=== PATIENT | male | born 1995 | race African-American/Black ===

== ENCOUNTER 2017-12-01 16:19 | Emergency (ER) | payer SELFPAY | END 2017-12-01 17:01 | disposition home or self-care (01) | LOC: ER 16:19 | DX: B35.4 Tinea corporis (principal); J45.909 Unspecified asthma, uncomplicated | CPT/HCPCS: 99283 ==

== ENCOUNTER 2018-07-04 08:45 | Emergency (ER) | payer SELFPAY ==
[~2018-07-04] VITALS: Ht 177.8 cm; Wt 68.7 kg
[~2018-07-04 08:45] MED LIST: CLOT15CR5 TP
[2018-07-04 09:54] LABS: CALCIUM 8.7 mg/dL (8.5-10.1); CREATININE 1.1 mg/dL (0.7-1.3); GFR 102.2; POTASSIUM 4.2 mmol/L (3.5-5.1)
[2018-07-04 09:55] LABS: BASO % 0 % (0-3); EOS # 0.3 x10^3/uL (0.0-0.7); EOS % 4 % (0-3); HEMATOCRIT 41.8 % (39.0-53.0); HEMOGLOBIN 14.3 g/dL (13.0-17.5); LYMPH # 3.1 x10^3/uL (1.0-4.8); LYMPH % 43 % (24-48); MEAN CORPUSCULAR HEMOGLOBIN 30 pg (25-35); MEAN CORPUSCULAR HGB CONC 34 g/dL (31-37); MEAN CORPUSCULAR VOLUME 86 fL (79-100); MONO # 0.8 x10^3/uL (0.0-1.1); MONO % 11 % (0-9); NEUT % 41 % (31-73); PLATELET COUNT 209 x10^3/uL (140-400); RED BLOOD COUNT 4.84 x10^6/uL (4.30-5.70); RED CELL DISTRIBUTION WIDTH 12.4 % (11.5-14.5); WHITE BLOOD COUNT 7.2 x10^3/uL (4.0-11.0)
--- NOTE | 2018-07-04 09:55 | PHYS DOC ---
Past Medical History Past Medical History: Asthma, Constipation Past Surgical History: No Surgical History Alcohol Use: Heavy Additional Information: reports drinking heavily every weekend Drug Use: Marijuana Adult General Chief Complaint Chief Complaint: ABDOMINAL PAIN HPI HPI Patient is a 22 year old male who presents with the states he has had a umbilical hernia since he was born but does not currently have a primary care to follow-up with. Patient states that now he has a hernia that is to the left of his umbilical hernia and able that when he is running or squats down it pops out and causes him some pain. Patient does state that he has some generalized pain in his abdomen that is worse when he drinks alcohol of which she states he only drinks on weekends. Patient denies any urinary symptoms, constipation, nausea, vomiting, fever, urinary symptoms. States that he takes no medications daily and is only allergic to seafood and peanuts. Review of Systems Review of Systems Constitutional: Denies fever or chills [] Eyes: Denies change in visual acuity, redness, or eye pain [] HENT: Denies nasal congestion or sore throat [] Respiratory: Denies cough or shortness of breath [] Cardiovascular: No additional information not addressed in HPI [] GI: Generalized abdominal pain , umbilical hernia since . Denies nausea, vomiting, bloody stools or diarrhea [] : Denies dysuria or hematuria [] Musculoskeletal: Denies back pain or joint pain [] Integument: Denies rash or skin lesions [] Neurologic: Denies headache, focal weakness or sensory changes [] Endocrine: Denies polyuria or polydipsia [] All other systems were reviewed and found to be within normal limits, except as documented in this note. Current Medications Current Medications Current Medications Medications (Trade) Dose Ordered Sig/Karley Start Time Stop Time Status Last Admin Dose Admin Info (CONTRAST GIVEN -- Rx MONITORING) 1 each PRN DAILY PRN 07/04/18 10:45 07/06/18 10:44 Iohexol (Omnipaque 300 Mg/ml) 75 ml 1X ONCE 07/04/18 10:45 07/04/18 10:46 DC 07/04/18 10:39 75 ML Allergies Allergies Allergies Coded Allergies Type Severity Reaction Last Updated Verified peanut Allergy Intermediate hives 07/04/18 Yes Uncoded Allergies Type Severity Reaction Last Updated Verified seafood Allergy Severe swelling 07/04/18 Physical Exam Physical Exam Constitutional: Well developed, well nourished, no acute distress, non-toxic appearance. [] HENT: Normocephalic, atraumatic, bilateral external ears normal, oropharynx moist, no oral exudates, nose normal. [] Eyes: PERRLA, EOMI, conjunctiva normal, no discharge. [] Neck: Normal range of motion, no tenderness, supple, no stridor. [] Cardiovascular:Heart rate regular rhythm, no murmur [] Lungs & Thorax: Bilateral breath sounds clear to auscultation [] Abdomen: Bowel sounds normal, soft, no tenderness, umbilical hernia, no other masses, no pulsatile masses. [] Skin: Warm, dry, no erythema, no rash. [] Back: No tenderness, no CVA tenderness. [] Extremities: No tenderness, no cyanosis, no clubbing, ROM intact, no edema. [] Neurologic: Alert and oriented X 3, normal motor function, normal sensory function, no focal deficits noted. [] Psychologic: Affect normal, judgement normal, mood normal. [] Current Patient Data Vital Signs Vital Signs Date Time Temp Pulse Resp B/P (MAP) Pulse Ox O2 Delivery O2 Flow Rate FiO2 07/04/18 10:58 64 16 141/95 (110) 98 Room Air 07/04/18 08:48 98.1 98.1 Lab Values Laboratory Tests Test 07/04/18 09:38 07/04/18 10:26 White Blood Count 7.2 x10^3/uL (4.0-11.0) Red Blood Count 4.84 x10^6/uL (4.30-5.70) Hemoglobin 14.3 g/dL (13.0-17.5) Hematocrit 41.8 % (39.0-53.0) Mean Corpuscular Volume 86 fL (79-100) Mean Corpuscular Hemoglobin 30 pg (25-35) Mean Corpuscular Hemoglobin Concent 34 g/dL (31-37) Red Cell Distribution Width 12.4 % (11.5-14.5) Platelet Count 209 x10^3/uL (140-400) Neutrophils (%) (Auto) 41 % (31-73) Lymphocytes (%) (Auto) 43 % (24-48) Monocytes (%) (Auto) 11 % (0-9) H Eosinophils (%) (Auto) 4 % (0-3) H Basophils (%) (Auto) 0 % (0-3) Neutrophils # (Auto) 3.0 x10^3uL (1.8-7.7) Lymphocytes # (Auto) 3.1 x10^3/uL (1.0-4.8) Monocytes # (Auto) 0.8 x10^3/uL (0.0-1.1) Eosinophils # (Auto) 0.3 x10^3/uL (0.0-0.7) Basophils # (Auto) 0.0 x10^3/uL (0.0-0.2) Sodium Level 135 mmol/L (136-145) L Potassium Level 4.2 mmol/L (3.5-5.1) Chloride Level 103 mmol/L (98-107) Carbon Dioxide Level 32 mmol/L (21-32) Anion Gap 0 (6-14) L Blood Urea Nitrogen 13 mg/dL (8-26) Creatinine 1.1 mg/dL (0.7-1.3) Estimated GFR (Cockcroft-Gault) 102.2 BUN/Creatinine Ratio 12 (6-20) Glucose Level 94 mg/dL (70-99) Calcium Level 8.7 mg/dL (8.5-10.1) Total Bilirubin 1.0 mg/dL (0.2-1.0) Aspartate Amino Transferase (AST) 23 U/L (15-37) Alanine Aminotransferase (ALT) 21 U/L (16-63) Alkaline Phosphatase 71 U/L (46-116) Total Protein 7.5 g/dL (6.4-8.2) Albumin 3.9 g/dL (3.4-5.0) Albumin/Globulin Ratio 1.1 (1.0-1.7) Lipase 85 U/L (73-393) Ethyl Alcohol Level < 10 mg/dL (0-10) Urine Collection Type Unknown Urine Color Yellow Urine Clarity Clear Urine pH 6.5 Urine Specific [place] 1.020 Urine Protein Negative mg/dL (NEG-TRACE) Urine Glucose (UA) Negative mg/dL (NEG) Urine Ketones (Stick) Negative mg/dL (NEG) Urine Blood Negative (NEG) Urine Nitrite Negative (NEG) Urine Bilirubin Negative (NEG) Urine Urobilinogen Dipstick 1.0 mg/dL (0.2 mg/dL) Urine Leukocyte Esterase Trace (NEG) Urine RBC Occ /HPF (0-2) Urine WBC 1-4 /HPF (0-4) Urine Squamous Epithelial Cells Few /LPF Urine Bacteria Few /HPF (0-FEW) Urine Mucus Slight /LPF Urine Opiates Screen Neg (NEG) Urine Methadone Screen Neg (NEG) Urine Barbiturates Neg (NEG) Urine Phencyclidine Screen Neg (NEG) Urine Amphetamine/Methamphetamine Neg (NEG) Urine Benzodiazepines Screen Pos (NEG) Urine Cocaine Screen Neg (NEG) Urine Cannabinoids Screen Pos (NEG) Urine Ethyl Alcohol Neg (NEG) Laboratory Tests 07/04/18 09:38 Laboratory Tests 07/04/18 09:38 EKG EKG [] Radiology/Procedures Radiology/Procedures CT Abdomen[] Impressions: [facility] [address] [place] [address] IMAGING REPORT Signed PATIENT: ANTHONY Angulo ACCOUNT: [id number] : 1995 LOCATION: ER AGE: 22 SEX: M EXAM STATUS: REG ER ORD. PHYSICIAN: TNI CRUMP APRN REASON: abdominal pain PROCEDURE: CT ABD PELV W/ IV CONTRST ONLY Examination: CT of the abdomen pelvis with IV contrast HISTORY: History of abdominal pain in the umbilicus COMPARISON: None available Technique: Axial CT images of the abdomen pelvis were performed with IV contrast. Coronal and sagittal reformats are performed Exposure: One or more of the following individualized dose reduction techniques were utilized for this examination: 1. Automated exposure control 2. Adjustment of the mA and/or kV according to patient size 3. Use of iterative reconstruction technique FINDINGS: The visualized bibasilar lungs are clear. No evidence of free air identified in the abdomen. The visualized liver, spleen, adrenals grossly appears unremarkable. The gallbladder is mildly distended. The stomach is mildly distended. The small bowel is nondilated. The appendix is not clearly identified however no obvious inflammatory fat stranding identified in the right lower quadrant of the abdomen. Feces and gas noted in the colon. Contrast identified in the posterior aspect of the urinary bladder. Evaluation of the pelvis is somewhat limited due to streak artifact from contrast in the urinary bladder. No evidence of lytic bony destructive lesion identified. At the level of the umbilicus there is a small knuckle bowel loop extending into the umbilicus, best visualized on series 2 image #50. IMPRESSION: 1. There is a small knuckle of bowel ,likely the transverse colon, extending into the umbilicus without obvious obstruction. 2. The appendix is not clearly identified however no obvious inflammatory fat stranding visualized in the right lower quadrant of the abdomen. Electronically signed by: Todd Cates MD (07/04/2018 11:26 AM) [id number] DICTATED and SIGNED BY: TODD CATES MD DATE: 07/04/18 1117 Course & Med Decision Making Course & Med Decision Making Patient is alert and oriented. Patient states that he has some abdominal pain to the left of his navel area that will pop out when he is running or squats down causing him pain. Patient also states he has generalized abdominal pain of which she cannot pinpoint states comes and goes he knows it it is worse with drinks alcohol which he states he only drinks on weekends. Patient denies constipation with last bowel movement being yesterday and it was normal for him. Patient denies urinary symptoms. Patient denies any nausea or vomiting or fever. Upon examination patient's abdomen is nontender with no masses felt. Patient does have an umbilical hernia right at navel that slightly protrudes of which patient states he has had since . Patient states that he had all these pains since "forever" has been seen multiple times at [facility] and [facility] he states last year for. Patient has never seen a general surgeon or has no primary care. Patient is currently having no pain. Patient's blood work is unremarkable. Patient's urine shows marijuana and Benzo use. Patient CT scan shows There is a small knuckle of bowel ,likely the transverse colon, extending into the umbilicus without obvious obstruction. The appendix is not clearly identified however no obvious inflammatory fat stranding visualized in the right lower quadrant of the abdomen. Patient will be referred to a general surgeon and discharged home. [] Dragon Disclaimer Dragon Disclaimer This electronic medical record was generated, in whole or in part, using a voice recognition dictation system. Departure Departure Impression: Primary Impression: Umbilical hernia Disposition: 01 HOME, SELF-CARE Condition: STABLE Referrals: NO PCP (PCP) MAGED IYER MD Patient Instructions: Umbilical Hernia, Child Additional Instructions: Follow-up with general surgery. Ibuprofen for pain. Problem Qualifiers Primary Impression: Umbilical hernia Obstruction and gangrene presence: without obstruction or gangrene Qualified Codes: K42.9 - Umbilical hernia without obstruction or gangrene TIN CRUMP [employer] Jul 04, 2018 09:55
[2018-07-04 10:00] LABS: ALBUMIN 3.9 g/dL (3.4-5.0); ALBUMIN/GLOBULIN RATIO 1.1 (1.0-1.7); TOTAL PROTEIN 7.5 g/dL (6.4-8.2)
[2018-07-04 10:41] LABS: BARBITURATES NEG (NEG); BENZODIAZEPINES POS (NEG); CANNABINOIDS POS (NEG); COCAINE NEG (NEG); METHADONE NEG (NEG); OPIATES NEG (NEG); PHENCYCLIDINE NEG (NEG)
[2018-07-04 10:42] LABS: AMPHETAMINE/METHAMPHETAMINE NEG (NEG)
[2018-07-04] MEDS ORDERED: IOHEXOL 300 MG/ML 100ML VIAL. IV ONE (10:45)
[2018-07-04] MEDS ORDERED: CONTRAST GIVEN. MC PRN (10:45)
[2018-07-04 10:47] LABS: BILIRUBIN,URINE NEGATIVE (NEG); CLARITY,URINE CLEAR; COLOR,URINE YELLOW; NITRITE,URINE NEGATIVE (NEG); PH,URINE 6.5; PROTEIN,URINE NEGATIVE (NEG-TRACE)
[2018-07-04 10:58] VITALS: BP 141/95
[2018-07-04 11:10] LABS: BACTERIA,URINE FEW /HPF (0-FEW); RBC,URINE OCC /HPF (0-2)
[2018-07-04 11:11] LABS: SQUAMOUS EPITHELIAL CELL,UR FEW /LPF
--- NOTE | 2018-07-04 11:29 | RAD ---
Examination: CT of the abdomen pelvis with IV contrast HISTORY: History of abdominal pain in the umbilicus COMPARISON: None available Technique: Axial CT images of the abdomen pelvis were performed with IV contrast. Coronal and sagittal reformats are performed Exposure: One or more of the following individualized dose reduction techniques were utilized for this examination: 1. Automated exposure control 2. Adjustment of the mA and/or kV according to patient size 3. Use of iterative reconstruction technique FINDINGS: The visualized bibasilar lungs are clear. No evidence of free air identified in the abdomen. The visualized liver, spleen, adrenals grossly appears unremarkable. The gallbladder is mildly distended. The stomach is mildly distended. The small bowel is nondilated. The appendix is not clearly identified however no obvious inflammatory fat stranding identified in the right lower quadrant of the abdomen. Feces and gas noted in the colon. Contrast identified in the posterior aspect of the urinary bladder. Evaluation of the pelvis is somewhat limited due to streak artifact from contrast in the urinary bladder. No evidence of lytic bony destructive lesion identified. At the level of the umbilicus there is a small knuckle bowel loop extending into the umbilicus, best visualized on series 2 image #50. IMPRESSION: 1. There is a small knuckle of bowel ,likely the transverse colon, extending into the umbilicus without obvious obstruction. 2. The appendix is not clearly identified however no obvious inflammatory fat stranding visualized in the right lower quadrant of the abdomen. Electronically signed by: Todd Cates MD (07/04/2018 11:26 AM) [id number]
== END 2018-07-04 12:03 | disposition home or self-care (01) ==
LOC: ER 08:45
DX: K42.9 Umbilical hernia without obstruction or gangrene (principal); J45.909 Unspecified asthma, uncomplicated; F10.10 Alcohol abuse, uncomplicated; Y90.9 Presence of alcohol in blood, level not specified; Z91.010 Allergy to peanuts; Z91.013 Allergy to seafood
CPT/HCPCS: 36415; 74177; 80053; 80307; 81001; 83690; 85025; 87086; 99285; G0480; Q9967; G0479

== ENCOUNTER 2018-07-20 09:29 | Emergency (ER) | payer SELFPAY ==
[~2018-07-20] VITALS: Ht 177.8 cm; Wt 64.0 kg
[2018-07-20 10:13] VITALS: BP 122/70
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
== END 2018-07-20 12:12 | disposition home or self-care (01) ==
LOC: ER 09:29
DX: S02.31XA Fracture of orbital floor, right side, initial encounter for closed fracture (principal); J45.909 Unspecified asthma, uncomplicated; F10.20 Alcohol dependence, uncomplicated; Y90.9 Presence of alcohol in blood, level not specified; Z91.010 Allergy to peanuts; Z91.013 Allergy to seafood; X58.XXXA Exposure to other specified factors, initial encounter; Y93.89 Activity, other specified; Y92.89 Other specified places as the place of occurrence of the external cause; Y99.8 Other external cause status
CPT/HCPCS: 70480; 99284

== ENCOUNTER 2020-07-21 07:33 | Emergency (ER) | payer MEDICAID ==
[~2020-07-21] VITALS: Ht 177.8 cm; Wt 64.5 kg
[2020-07-21] MEDS ORDERED: cefTRIAXone IM 250 MG VIAL IM ONE (08:15)
[2020-07-21] MEDS ORDERED: ONDANSETRON ODT 4 MG TAB.RAPDIS. PO ONE (08:15)
[2020-07-21] MEDS ORDERED: AZITHROMYCIN 250 MG TABLET. PO ONE (08:15)
[2020-07-21] MEDS ORDERED: CLOT15CR5 TP (08:45)
--- NOTE | 2020-07-21 08:49 | PHYS DOC ---
Past Medical History Past Medical History: Asthma, Constipation Additional Past Medical Histor: HERNIA Past Surgical History: No Surgical History Smoking Status: Never Smoker Alcohol Use: Heavy Drug Use: Marijuana General Adult EDM: Chief Complaint: GI PROBLEM HPI: HPI: Patient is a 24 year old male who presents complaining of rectal discomfort, rectal discharge, and some mild bleeding. Patient is involved in a relationship with another male and states he has pain with rectal intercourse. He noticed the "mucus" discharge a few weeks ago after intercourse. He denies discharge any other time. He does not have any blood or mucus in his stools. He denies abdominal pain, nausea, vomiting, diarrhea, constipation. He was treated a year ago for something similar. 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 Review of Systems: Review of Systems: General: Denies fever, chills, sweats, fatigue Eyes: Denies drainage, blurred vision, eye redness HENT: Denies rhinorrhea, sore throat, earache Respiratory: Denies cough, shortness of breath, wheezing Cardiac: Denies edema, palpitations, chest pain GI: Denies abdominal pain, Nausea, vomiting MSK: Denies back pain, neck pain Skin: Denies rash, jaundice Neuro: Denies headache, dizziness Psychiatric: Denies SI/HI Heart Score: Risk Factors: Risk Factors: DM, Current or recent (<one month) smoker, HTN, HLP, family history of CAD, obesity. Risk Scores: Score 0 - 3: 2.5% MACE over next 6 weeks - Discharge Home Score 4 - 6: 20.3% MACE over next 6 weeks - Admit for Clinical Observation Score 7 - 10: 72.7% MACE over next 6 weeks - Early Invasive Strategies Current Medications: Current Medications Medications (Trade) Dose Ordered Sig/Karley Start Time Stop Time Status Last Admin Dose Admin Azithromycin (Zithromax) 1,000 mg 1X ONCE 07/21/20 08:15 07/21/20 08:16 DC 07/21/20 08:33 1,000 MG Ceftriaxone Sodium (Rocephin Im) 250 mg 1X ONCE 07/21/20 08:15 07/21/20 08:16 DC 07/21/20 08:35 250 MG Ondansetron HCl (Zofran Odt) 4 mg 1X ONCE 07/21/20 08:15 07/21/20 08:16 DC 07/21/20 08:33 4 MG Allergies: Allergies: Allergies Coded Allergies Type Severity Reaction Last Updated Verified fish derived Allergy Severe Swelling 07/21/20 Yes peanut Allergy Intermediate hives 07/04/18 Yes Physical Exam: PE: General: Awake, alert, NAD. Well Nourished, well hydrated. Cooperative HEENT: Atraumatic, EOMI, PERRL, airway patent, moist oral mucosa Neck: Supple, trachea midline Respiratory: CTA bilaterally, normal effort, no wheezing/crackles CV: RRR, no murmur, cap refill <2 GI: Soft, nondistended, nontender, no masses MSK: No obvious deformities Skin: Warm, dry, intact Neuro: A&O x3, speech NL, sensory and motor grossly intact, no focal deficits Psych: Normal affect, normal mood, not suicidal or homicidal Current Patient Data: Vital Signs: Vital Signs Date Time Temp Pulse Resp B/P (MAP) Pulse Ox O2 Delivery O2 Flow Rate FiO2 07/21/20 07:46 98.2 86 20 122/71 (88) 99 Room Air 98.2 EKG: EKG: [] Radiology/Procedures: Radiology/Procedures: [] Course & Med Decision Making: Course & Med Decision Making Pertinent Labs and Imaging studies reviewed. (See chart for details) Patient is a 24 year old male who presents to the Emergency Room with rectal discharge, discomfort, and intermittent bleeding after intercourse. Patient's presentation is consistent with rectal STDs. Patient does not have any symptoms suggestive of a rectal abscess and this is been ongoing for several weeks. It is likely that patient was treated for an STD last year and did not understand that his partner need to be treated. I have discussed this with the patient in depth here in the emergency room. Patient declines an exam at this time. We will treat him empirically. Patient's test results and vitals while in the ED were fully reviewed and discussed with the patient. Patient is stable and at this time does not need admission to the hospital. We have discussed strict return precautions and the importance of following up with their Primary Care Physician. Patient stated understanding and was given an opportunity to ask any questions. Patient is in agreement with plan. Sheila Disclaimer: Sheila Disclaimer: This electronic medical record was generated, in whole or in part, using a voice recognition dictation system. Departure Departure Impression: Primary Impression: Rectal discharge Additional Impression: Rectal discomfort Disposition: HOME, SELF-CARE Condition: STABLE Referrals: NO PCP (PCP) Patient Instructions: Sexually Transmitted Disease Scripts Clotrimazole/Betamethasone Dip (CLOTRIMAZOLE-BETAMETHASONE CRM) 15 Gm Cream..g. 1 MARÍA TP BID, #30 GM 1 Refill Prov: YE BOCANEGRA MD 07/21/20 Justicifation of Admission Dx: Justifications for Admission: Justification of Admission Dx: N/A YE BOCANEGRA MD Jul 21, 2020 08:49
[2020-07-21 09:03] LABS: BILIRUBIN,URINE NEGATIVE (NEG); CLARITY,URINE CLEAR; COLOR,URINE YELLOW; NITRITE,URINE NEGATIVE (NEG); PH,URINE 5.5 (<5.0-8.0); PROTEIN,URINE NEGATIVE (NEG-TRACE); UROBILINOGEN,URINE 0.2 mg/dL (0.2 mg/dL)
[2020-07-21 09:13] VITALS: BP 136/86
[2020-07-21 09:21] LABS: BACTERIA,URINE 0 /HPF (0-FEW); RBC,URINE 0 /HPF (0-2); SQUAMOUS EPITHELIAL CELL,UR FEW /LPF; WBC,URINE OCC /HPF (0-4)
== END 2020-07-21 09:35 | disposition home or self-care (01) ==
LOC: ER 07:33
DX: K62.5 Hemorrhage of anus and rectum (principal); J45.909 Unspecified asthma, uncomplicated; F12.90 Cannabis use, unspecified, uncomplicated; F10.10 Alcohol abuse, uncomplicated; Z98.890 Other specified postprocedural states; Z91.013 Allergy to seafood; Z91.010 Allergy to peanuts
CPT/HCPCS: 81001; 87491; 87591; 96372; 99283; J0696

== ENCOUNTER 2020-10-12 06:56 | Emergency (ER) | payer SELFPAY ==
[~2020-10-12] VITALS: Ht 177.8 cm; Wt 64.0 kg
--- NOTE | 2020-10-12 07:45 | PHYS DOC ---
Past Medical History Past Medical History: Asthma, Constipation Additional Past Medical Histor: HERNIA Past Surgical History: No Surgical History Smoking Status: Never Smoker Alcohol Use: Heavy Drug Use: Marijuana General Adult EDM: Chief Complaint: GENERALIZED BODY ACHES HPI: HPI: Patient is a 25 year old male who presented to ER for 1 week history of fever and chills body ache, low back pain. Patient denies any cough, no neck pain, no headache, no abdominal pain, no cough, no trouble breathing, no nausea vomiting. Patient denies any injury. Complaint of low back pain but not in the middle of his back but on the bilateral lower muscle area. Patient is not sure if he been exposed to anybody who had coronavirus. Patient denies any neck pain or neck stiffness. Patient denies any sore throat. Review of Systems: Review of Systems: Constitutional: Positive for fever and chills. [] Eyes: Denies change in visual acuity. [] HENT: Denies nasal congestion or sore throat. [] Respiratory: Denies cough or shortness of breath. [] Cardiovascular: Denies chest pain or edema. [] GI: Denies abdominal pain, nausea, vomiting, bloody stools or diarrhea. [] : Denies dysuria. [] Musculoskeletal: Positive for lower back pain. Integument: Denies rash. [] Neurologic: Denies headache, focal weakness or sensory changes. [] Endocrine: Denies polyuria or polydipsia. [] Lymphatic: Denies swollen glands. [] Psychiatric: Denies depression or anxiety. [] Heart Score: Risk Factors: Risk Factors: DM, Current or recent (<one month) smoker, HTN, HLP, family history of CAD, obesity. Risk Scores: Score 0 - 3: 2.5% MACE over next 6 weeks - Discharge Home Score 4 - 6: 20.3% MACE over next 6 weeks - Admit for Clinical Observation Score 7 - 10: 72.7% MACE over next 6 weeks - Early Invasive Strategies Current Medications: Current Medications Medications (Trade) Dose Ordered Sig/Karley Start Time Stop Time Status Last Admin Dose Admin Ibuprofen (Motrin) 600 mg 1X ONCE 10/12/20 08:00 10/12/20 08:01 Allergies: Allergies: Allergies Coded Allergies Type Severity Reaction Last Updated Verified fish derived Allergy Severe Swelling 07/21/20 Yes peanut Allergy Intermediate hives 07/04/18 Yes Physical Exam: PE: Constitutional: Well developed, well nourished, no acute distress, non-toxic appearance. [] HENT: Normocephalic, atraumatic, bilateral external ears normal, oropharynx etta st, no oral exudates, nose normal. [] Eyes: PERRLA, EOMI, conjunctiva normal, no discharge. [] Neck: Normal range of motion, no tenderness, supple, no stridor. [] Cardiovascular:Heart rate regular rhythm, no murmur [] Lungs & Thorax: Bilateral breath sounds clear to auscultation [] Abdomen: Bowel sounds normal, soft, no tenderness, no masses, no pulsatile masses. [] Skin: Warm, dry, no erythema, no rash. [] Back: There is no midline lumbar vertebral tenderness to palpation, no CVA t enderness. There is tenderness to palpation on lower bilateral paraspinal muscle area. Extremities: No tenderness, no cyanosis, no clubbing, ROM intact, no edema. [] Neurologic: Alert and oriented X 3, normal motor function, normal sensory function, no focal deficits noted. [] Psychologic: Affect normal, judgement normal, mood normal. [] Current Patient Data: Labs: Laboratory Tests Test 10/12/20 07:30 10/12/20 07:40 10/12/20 08:24 Influenza Type A Antigen Negative Influenza Type B Antigen Negative Group A Streptococcus Rapid Negative Urine Collection Type Unknown Urine Color Yellow Urine Clarity Clear Urine pH 6.0 Urine Specific [place] 1.025 Urine Protein Negative mg/dL Urine Glucose (UA) Negative mg/dL Urine Ketones (Stick) Negative mg/dL Urine Blood Negative Urine Nitrite Negative Urine Bilirubin Negative Urine Urobilinogen Dipstick 0.2 mg/dL Urine Leukocyte Esterase Negative Urine RBC 0 /HPF Urine WBC Occ /HPF Urine Squamous Epithelial Cells Occ /LPF Urine Bacteria 0 /HPF Urine Mucus Slight /LPF Current Medications Medications (Trade) Dose Ordered Sig/Karley Route PRN Reason Start Time Stop Time Status Last Admin Dose Admin Ibuprofen (Motrin) 600 mg 1X ONCE PO 10/12/20 08:00 10/12/20 08:01 DC 10/12/20 08:01 EKG: EKG: [] Radiology/Procedures: Radiology/Procedures: [] Course & Med Decision Making: Course & Med Decision Making Pertinent Labs and Imaging studies reviewed. (See chart for details) [] Sheila Disclaimer: Sheila Disclaimer: This electronic medical record was generated, in whole or in part, using a voice recognition dictation system. Departure Departure Impression: Primary Impression: Viral syndrome Disposition: 01 DC HOME SELF CARE/HOMELESS Condition: STABLE Referrals: NO PCP (PCP) follow up with your doctor as needed Patient Instructions: Viral Syndrome Additional Instructions: You have been tested for or diagnosed with COVID-19. It is an infection caused by a new type of coronavirus. COVID-19 will cause cold-like or mild flu symptoms in most. It can cause more severe symptoms like problems breathing in some. There is no treatment for COVID-19. The body will clear the infection over time. Self-care will help to ease discomfort. Steps to Take: Self-Care Rest as needed. Healthy habits may help you feel better. Steps include: Choose healthy foods including fruits and vegetables. Drink water throughout the day. Get plenty of sleep each night. If you smoke, try to quit. It may ease breathing. Avoid alcohol. Keep Others Healthy The virus can spread to others. Droplets are released every time you sneeze or cough. The droplets can get into the mouth, nose, or eyes of people near you and lead to infection. To lower the chances of spreading COVID-19 to others: Stay at home until your doctor has said it is safe to leave. If you tested positive this will mean staying isolated until both of the following are true: At least 7 days have passed since the start of illness. You are free of fever for at least 72 hours without the use of medicine. During this time: - Avoid public areas, events, or transportation. Do not return to work or school until your doctor has said it is safe to do so. - Call ahead if you need to go to a medical center. Let them know you may have COVID-19. It will help them guide you where to go. They may also ask you to wear a facemask when you come to the office. - If you call for emergency medical services, let them know you may have COVID- 19. While at home: - Try to avoid close contact with others. Stay about 6 feet away. - If possible, spend most of your time in a separate room from others. - Use a face mask if you will be in close contact with others such as sharing a room or vehicle. - Have someone wipe down common surfaces in the home. Use household hop farm worker every day on areas like doorknobs, counters, or sinks. - Cough or sneeze into a tissue. Throw the tissue away right after use. If a tissue is not available, cough or sneeze into your elbow. - Wash your hands often. Wash them after sneezing or coughing. Use soap and water and wash for at least 20 seconds. Alcohol based hand freight car cleaner can be used if soap and water is not available. - Do not prepare food for others. Avoid sharing personal items like forks, spoons, or toothbrushes. - Avoid close contact with pets while you are sick. There is no evidence of the virus passing to pets. This is a safety step until more is known about this virus. Isolation can be frustrating. Social interaction can help. Keep in touch with friends and family through phone and tech options. You can still interact with others in your home, just keep a safe distance of about 6 feet. Follow-up: Your doctors office will check in with you to see if there are any changes in your health. You may be asked to keep track of symptoms to share with them. They will also let you know when you are clear to be in public again. Problems to Look Out For: Contact your doctor if your recovery is not going as you expect. Get emergency care if you have problems such as: - Trouble breathing - Nonstop chest pain or pressure - Changes in awareness, confusion, or problems waking - Lips or face have bluish color - Worsening of symptoms If you think you have an emergency, call for emergency medical services right away. As taken from [facility] [place] ENRIKE Stack DO Oct 12, 2020 07:45
[2020-10-12] MEDS ORDERED: IBUPROFEN 200 MG TABLET. PO ONE (08:00)
[2020-10-12 08:32] LABS: INFLUENZA A PATIENT NEGATIVE (NEGATIVE); INFLUENZA B PATIENT NEGATIVE (NEGATIVE)
[2020-10-12 08:47] LABS: BILIRUBIN,URINE NEGATIVE (NEG); CLARITY,URINE CLEAR; COLOR,URINE YELLOW; NITRITE,URINE NEGATIVE (NEG); PROTEIN,URINE NEGATIVE (NEG-TRACE); UROBILINOGEN,URINE 0.2 mg/dL (0.2 mg/dL)
[2020-10-12 08:58] LABS: BACTERIA,URINE 0 /HPF (0-FEW); RBC,URINE 0 /HPF (0-2); WBC,URINE OCC /HPF (0-4)
[2020-10-12 10:17] VITALS: BP 136/81
--- NOTE | 2020-10-13 16:00 | NUR ---
IP: Attempted to contact pt concerning COVID results. Phone number listed in medical record is not his number.
== END 2020-10-12 10:34 | disposition home or self-care (01) ==
LOC: ER 06:56
DX: B34.9 Viral infection, unspecified (principal); Z20.828 Contact with and (suspected) exposure to other viral communicable diseases; R50.9 Fever, unspecified; M54.5 Low back pain; J45.909 Unspecified asthma, uncomplicated; F12.90 Cannabis use, unspecified, uncomplicated; F10.10 Alcohol abuse, uncomplicated; Z91.013 Allergy to seafood; Z91.010 Allergy to peanuts
CPT/HCPCS: 81001; 87070; 87804; 87880; 99283; C9803; U0003

== ENCOUNTER 2021-06-04 22:06 | Emergency (ER) | payer MEDICAID ==
[~2021-06-04] VITALS: Ht 177.8 cm; Wt 63.6 kg
[2021-06-04 22:55] VITALS: BP 125/75
== END 2021-06-05 03:51 | disposition left against medical advice (07) ==
LOC: ER 22:06
DX: R10.9 Unspecified abdominal pain (principal); M54.9 Dorsalgia, unspecified; M79.609 Pain in unspecified limb; Z53.21 Procedure and treatment not carried out due to patient leaving prior to being seen by health care provider